=== PATIENT | male | born 1985 | race Two or more races ===

== ENCOUNTER → 2024-05-24 | Outpatient (CLI) | payer OTHER, SELFPAY ==
[2024-05-24 10:19] LABS: Basophils # (Auto) 0.1 Thou/mm3 (0.0-0.2); Basophils % (Auto) 1 % (0-2.5); Eosinophils # (Auto) 0.9 Thou/mm3 (0.0-0.5); Eosinophils % (Auto) 10 % (0-10); Hematocrit 46.4 % (41.0-53.0); Hemoglobin 15.2 g/dL (13.5-16.0); Immature Granulocytes % (Auto) 0 % (0-0); Immature Granulocytes Auto 0.03 Thou/mm3 (0.00-0.00); Lymphocytes # (Auto) 3.7 Thou/mm3 (1.0-4.8); Lymphocytes % (Auto) 39 % (10-50); Mean Corpuscular HGB Conc 32.8 g/dl (31.0-37.0); Mean Corpuscular Hemoglobin 27.6 pg (25.0-35.0); Mean Corpuscular Volume 84 fL (80-100); Monocytes # (Auto) 0.5 Thou/mm3 (0.0-0.8); Monocytes % (Auto) 5 % (0-12); Neutrophils # (Auto) 4.2 Thou/mm3 (1.8-7.7); Neutrophils % (Auto) 45 % (37-80); Nucleated Red Blood Cell % 0 /100 WBC (0); Platelet Count 255 Thou/mm3 (140-440); RDW Standard Deviation 40.6 fL (35.1-43.9); White Blood Count 9.4 Thou/mm3 (3.8-10.6)
[2024-05-24 10:35] LABS: Alanine Aminotransferase 39 U/L (10-49); Albumin, Serum 4.8 gm/dL (3.5-5.0); Albumin/Globulin Ratio 1.7 (1.2-2.2); Alkaline Phosphatase 58 U/L (46-116); Anion Gap 6 (7-16); Aspartate Amino Transferase 17 U/L (0-34); BUN/Creatinine Ratio 13 Ratio (12-20); Bilirubin,Total 0.4 mg/dL (0.3-1.2); Blood Urea Nitrogen 12 mg/dL (9-23); Carbon Dioxide 29.6 mMol/L (20.0-31.0); Cardiac Risk Estimate 4.7 RATIO (4.0-6.7); Chloride 103 mMol/L (98-107); Cholesterol 178 mg/dL (132-200); Creatinine (Component) 0.9 mg/dL (0.6-1.3); Globulin 2.8 gm/dL (2.3-3.5); Glucose 117 mg/dL (74-106); HDL Cholesterol 38 mg/dL (40-60); LDL Cholesterol,Calculated 113 mg/dL (0-130); Osmolality,Calculated 278 (275-295); Potassium 4.1 mMol/L (3.4-5.1); Sodium 139 mMol/L (136-145); Thyroid Stimulating Hormone 1.84 uIU/mL (0.55-4.78); Total Protein 7.6 gm/dL (5.7-8.2); Triglycerides 137 mg/dL (30-150); eGFR > 60 See Note
[2024-05-24 10:36] LABS: Glucose Estimated Average 123 mg/dL (80-131); Hemoglobin A1C 5.9 % Hgb (4.8-6.0)
[2024-05-24 10:51] LABS: Syphilis Nonreactive (Nonreactive)
[2024-05-24 11:48] LABS: HIV (1&2) Antibody Rapid Non-Reactive
[2024-05-24 12:25] LABS: Hepatitis A Antibody IgM Non Reactive (Non React); Hepatitis B Core Antibody IgM Non Reactive (Non React); Hepatitis B Surface Antigen Non Reactive (Non React); Hepatitis C Antibody Non Reactive (Non React)
[2024-05-24 15:52] LABS: Chlamydia trachomatis PCR Negative (Not Detect); Neisseria Gonorrhoeae DNA PCR Negative (Not Detect); Trichomonas Negative (Negative)
== END | disposition home or self-care (01) ==
LOC: SLAB 09:10
PROVIDERS: PCP Family Medicine; Referring Provider Internal Medicine; Visit Provider Internal Medicine
DX: E66.3 Overweight (principal); R53.83 Other fatigue; R73.03 Prediabetes; Z11.3 Encounter for screening for infections with a predominantly sexual mode of transmission; Z13.6 Encounter for screening for cardiovascular disorders; Z79.899 Other long term (current) drug therapy
CPT/HCPCS: 36415; 80053; 80061; 80074; 83036; 84443; 85025; 86703; 86780; 87491; 87591; 87661

== ENCOUNTER 2024-07-30 13:15 | Outpatient (AMB) | payer OTHER, SELFPAY ==
[2024-07-30 13:30] VITALS: BP 115/78; PULSE 86; RESP 18; TEMP 36.4; O2SAT 96; BMI 29.7
--- NOTE | 2024-07-30 13:30 | PD.RESCLINIC ---
Vital Signs 07/30/24 13:30 Height 1.7 m Height Method Stated Weight 86.183 kg Weight Measurement Method Standing Scale BMI 29.7 BP 115/78 Blood Pressure Source Automatic Cuff Blood Pressure Location Right Upper Arm Position Sitting Respiration 18 Pulse 86 Pulse Source Monitor Temp 97.5 F Temp Source Temporal Artery Scan Pulse Oximetry (%) 96 Oxygen Delivery Method Room Air Allergies/Meds Allergies & Medications Allergies No Known Allergies Allergy (Verified 07/30/24 13:35) Medication Reconciliation tirzepatide (weight loss) 2.5 mg/0.5 mL subcutaneous solution (Zepbound) 2.5 mg (0.5 mL) subcut QWEEK 4 weeks #2 mL 07/30/24 [Rx] MA Intake Visit Data Collection New Patient or Established: Established Patient (seen at [facility] within 3 years) Seen by Clinical Staff ONLY (RN/MA): No Pain Present Currently: No Pain scale:: 0 Pain Scale Used: [place]/[employer]ical [employer]ped[employer]ooter Required: No PCP or OBGYN visit in last 3 months: No Hx Now: No Do You Feel Safe at Home: Yes Authorities Contacted: N/A Smoking Status Smoking Status: Never smoker Immunization / Flu Flu Vaccine in the Last 12 Months: Yes Flu Vaccine Exclusion Criteria: Already Received Past Medical History Social History SMOKING STATUS: Smoking status: Never smoker Patient Portal Questionaires Social History Tobacco History Smoking Status: Never smoker Domestic Abuse History Do You Feel Safe at Home: Yes Review of Systems Report any current symptoms Only answer those that you have currently: Past Medical History Past Medical History Have you ever been diagnosed with any of the following: History of Present Illness HPI Narrative Mr. Apodaca is a 39-year-old male with past medical history of hyperlipidemia, prediabetes and ADHD who presented to [facility] clinic on 07/30/2024 with a chief complaint of neck discomfort and tenderness. Patient complains of significant discomfort in the neck, complains of tenderness on palpation, onset about 1 week ago, reports it to be progressive with increasing discomfort and tenderness. Patient denies any recent change in weight, denies any history of thyroid disorders, denies GERD, nasal drip, cough, shortness of breath or difficulty breathing. On palpation lymph node palpated in the neck, tenderness noted in the neck as well. Patient otherwise is on no medication for hyperlipidemia or prediabetes, BMI 29.7. He reports lifestyle measures have not improved or assisted with weight loss, only mild improvement noted. Considering patient has strong family history of cardiac disease and diabetes mellitus. Patient would benefit extensively from being on supplement for weight loss. Patient otherwise has no current concerns. Review of Systems Review of Systems Systems Reviewed: All systems reviewed, normal except as documented Objective/Exam Narrative Physical exam: Physical Exam General: Awake and in no acute distress. Conversational and non-toxic appearing. HEENT: Normocephalic, atraumatic, mucous membranes moist. Significant tenderness to palpation of anterior neck, likely thyroid gland. Able to palpate a lymph node as well. Heart: Regular rate and rhythm, no murmurs. Lungs: Clear to auscultation with no wheezing or crackles. Abdomen: Soft, nondistended, nontender, positive bowel sounds. ?No guarding or rebound tenderness. Neurologic: Alert and oriented x3, no gross neurological deficit, and patient able to move all 4 extremities. Extremities: No edema. Skin: No rash or ecchymoses. Assessment & Plan Diagnosis / Problem List (1) Neck discomfort: Status: Acute Assessment & Plan: -Complains of significant discomfort in the neck, complains of tenderness on palpation, onset about 1 week ago, reports it to be progressive with increasing discomfort and tenderness. -Denies any recent change in weight, denies any history of thyroid disorders, denies GERD, nasal drip, cough, shortness of breath or difficulty breathing. -On palpation lymph node palpated in the neck, tenderness noted in the neck as well. Plan: - High suspicion of etiology possibly secondary to thyroid inflammation - Ordered TSH, free T4, TSI, TPO - Follow CBC CMP and magnesium, EBV - Ordered thyroid ultrasound - Will follow-up outpatient once labs have resulted. (2) Hyperlipidemia, unspecified: Status: Chronic Qualifiers: Hyperlipidemia type: moderate mixed hyperlipidemia not requiring statin therapy Qualified Code(s): E78.2 - Mixed hyperlipidemia Assessment & Plan: Patient has history of hyperlipidemia, per last lipid panel dated 05/24/2024: Triglyceride 137, cholesterol 178, LDL 113, HDL 38. Lipid panel from 2022 shows triglyceride 214, cholesterol 218, LDL 140, HDL 35. Hemoglobin A1c 5.9. Plan: - Considering patient has hyperlipidemia or prediabetes, BMI 29.7 and lifestyle measures have not improved or assisted with weight loss, only mild improvement noted. - Also patient has strong family history of cardiac disease and diabetes mellitus. Patient would benefit extensively from being on supplement for weight loss. - Prescribed Zepbound to assist with weight loss. - Follow-up outpatient, monitor weight - Continue lifestyle interventions - Educated on exercising 40 to 45 minutes 5 days a week of moderate intensity - Maintain adequate hydration, keep close eye on open A1c, repeat every 6 months to 1 year (3) Pre-diabetes: Status: Chronic Assessment & Plan: As above Plan: As above (4) Overweight (BMI 25.0-29.9): Status: Chronic Assessment & Plan: As above Plan: As above Plan Patient to follow outpatient after obtaining labs. Continue lifestyle modification for weight loss and management of hyperlipidemia and prediabetes. Prescribed Zepbound. Case discussed with Attending Dr. Bush. Zaynab Robb PGY1 Disclaimer: This note was dictated by speech recognition. Minor errors in sales forecast analyst may be present due to voice recognition software. Orders: Orders CBC 1 Month E78.5 - Hyperlipidemia, unspecified, M54.2 - Cervicalgia [place] Virus Ab Panel* 1 Month M54.2 - Cervicalgia Free T4 (Free Thyroxine) 1 Month M54.2 - Cervicalgia Thyroid Peroxidase Antibodies* 1 Month M54.2 - Cervicalgia TSI, Thyroid Stimulating Ig* 1 Month M54.2 - Cervicalgia Comprehensive Metabolic Panel 1 Month E78.5 - Hyperlipidemia, unspecified, M54.2 - Cervicalgia Magnesium 1 Month E78.5 - Hyperlipidemia, unspecified, M54.2 - Cervicalgia Thyroid Stimulating Hormone 1 Month M54.2 - Cervicalgia US thyroid 1 Month M54.2 - Cervicalgia Physician Billing New Patient New Patient: E/M Level 3-CPT [id number] Office Procedures [facility] Level of Care Nursing/Assessment Patient Status: Established Patient Nursing Assessment/Reassessment: Medication Reconciliation, Update PMH in EMR and Vital Signs Coordination of Care: Complex Care and Chronic Disease 1-5, Consent,records obtained, informed consent, Education Simp Pt/Fam and Staff clarify orders Established Patient Charge Established Patient Point Assignment: 85 Established Patient Point Charge: Level 3 (80-115)
== END 2024-07-30 14:03 | disposition home or self-care (01) ==
LOC: HODAHC 13:15
PROVIDERS: Supervising Provider Internal Medicine
DX: M54.2 Cervicalgia (principal); E78.2 Mixed hyperlipidemia; R73.03 Prediabetes; E66.3 Overweight; Z68.29 Body mass index [BMI] 29.0-29.9, adult
CPT/HCPCS: 99213; G0463